=== PATIENT | female | born 1940 ===

== ENCOUNTER 2016-08-27 13:36 | Emergency (ER) | payer SELFPAY ==
[~2016-08-27] VITALS: Ht 165.1 cm; Wt 78.5 kg
--- NOTE | 2016-08-27 13:47 | ED DYSPNEA/ASTHMA COMPLAINT ---
History of Present Illness General Chief Complaint: Dyspnea (COPD, CHF, Other) Stated Complaint: BIBA WITH SOB Source: patient Vital Signs & Intake/Output Vital Signs & Intake/Output Vital Signs Date Time Temp Pulse Resp B/P Pulse O2 O2 Flow FiO2 Ox Delivery Rate 08/27 1353 96.1 84 20 135/63 100 Aerosol Mask Past History Travel History Traveled to [place] past 21 day No Medical History Any Pertinent Medical History? see below for history Neurological: NARCOLEPSY EENT: allergies Cardiovascular: hyperlipidemia, MITRAL VALVE PROLAPSE Respiratory: COPD, emphysema, H/O MALIGNANT NEOPLASM OF BRONCHUS AND LUNG Gastrointestinal: constipation Musculoskeletal: fibromyalgia, osteoarthritis, spinal stenosis (CERVICAL SPINE) Psychiatric: depression Endocrine: diabetes (TYPE 2), hypothyroidism Blood Disorders: anemia, DVT Psychosocial History Tobacco Use: Current Daily Use Family History Hx Contributory? No Progress Plan of Care: Orders Procedure Date/time Status XRY-CHEST XRAY, PA AND LATERAL 08/27 1351 Active ARTERIAL BLOOD GAS (GEN) 08/27 1341 Active TROPONIN LEVEL 08/27 1341 Active MAGNESIUM 08/27 1341 Active COMPREHENSIVE METABOLIC PANEL 08/27 1341 Active CBC WITHOUT DIFFERENTIAL 08/27 1341 Active B-TYPE NATRIURETIC PEP (BNP) 08/27 1341 Active EKG 08/27 1341 Active Departure Departure Condition: Stable Departure Forms: Customer Survey General Discharge Information
== END 2016-08-27 14:30 | disposition admitted as inpatient to this hospital (09) ==
LOC: ERH 13:36
DX: R06.02 Shortness of breath (principal)